=== PATIENT | female | born 1980 | race Caucasian/White ===

== ENCOUNTER → 2018-04-30 | Day surgery (SDC) | payer OTHER ==
--- NOTE | 2018-05-03 14:58 | PATH ---
Surgical Pathology Report Patient Name: FORTINO MAYNARD [facility]. Rec. #: [id number] /Age/Gender: 1980 (Age: 38) / F Account: [id number] Location: [facility] Taken: 04/30/2018 Received: 04/30/2018 Reported: 05/03/2018 Physicians: Maya Salmon M.D. Specimen(s) Received A: RIGHT AXILLARY TAIL CORE BIOPSY B: RIGHT BREAST 10:00 7 CFN CORE BIOPSY Clinical History Palpable mass Ultrasound findings: Probably benign Final Diagnosis A. AXILLARY TAIL, RIGHT, CORE BIOPSY: BENIGN BREAST TISSUE SHOWING FIBROADENOMA. B. BREAST, RIGHT, 10:00 7 CM FN, CORE BIOPSY: BENIGN BREAST TISSUE SHOWING FIBROADENOMA. Electronically Signed Ilene Fox M.D. Gross Description A. received in formalin, labeled "right axillary tail core biopsy" are eight cores of light meehan and yellow-meehan tissue ranging from 0.5-0.8 cm with a diameter of up to 0.2 cm. Entirely submitted in two cassettes. B. received in formalin, labeled "right breast 10:00 7 cm fn core biopsy" are two cores of yellow and meehan tissue ranging from 0.7-1.0 cm in length with a diameter of up to 0.2 cm. Entirely submitted in one cassette. Time to formalin fixation: < 1 minute Total formalin fixation time: Approximately 53 hours [facility]/04/30/2018
--- NOTE | 2018-05-03 23:28 | OP ---
DATE OF OPERATION: 04/30/2018 PREOPERATIVE DIAGNOSIS: Right axillary tail mass and right breast mass 10 o'clock, 7 cm from the nipple. POSTOPERATIVE DIAGNOSIS: Right axillary tail mass and right breast mass 10 o'clock, 7 cm from the nipple. PROCEDURE: Right breast and axillary tail ultrasound guided core biopsies with clip placement in the breast biopsy. ANESTHESIA: Local. ATTENDING SURGEON: Markus Darling M.D. ESTIMATED BLOOD LOSS: Minimal. COMPLICATIONS: None. DESCRIPTION OF PROCEDURE: Patient was made aware of the risks and benefits of the procedure and consented. She was placed in supine position. The right axillary tail was approached first under sterile conditions with 1% lidocaine for local anesthesia. A small mikhail was made in the skin using a 13 gauge suction biopsy device, inferolateral approach, under ultrasound guidance multiple cores were obtained and submitted to pathology. A clip was not placed at that time. Steri-Strips and a sterile bandage were then applied. The right breast 10 o'clock, 7 cm from the nipple lesion was then approached using gloves. Under sterile conditions with 1% lidocaine for local anesthesia, a small mikhail was made in the skin. Using a 13 gauge suction biopsy device, under ultrasound guidance multiple cores were obtained and submitted to pathology. Likewise under ultrasound guidance a bowtie clip was placed into the biopsy region. Well tolerated by the patient. Steri-Strips and a sterile bandage were applied. Will contact her with results. MARKUS DARLING M.D. [id number]
== END | disposition home or self-care (01) ==
LOC: FRADUS-SUR 13:44
PROVIDERS: ATTEND Surgery
PROC: 0HBT3ZX Excision of Right Breast, Percutaneous Approach, Diagnostic (ICD-10-PCS; principal; 2018-04-30)
DX: D24.1 Benign neoplasm of right breast (principal)
CPT/HCPCS: 19083; 76942-TC; 87899; 88305-TC; A4648